=== PATIENT | male | born 1960 | race Caucasian/White ===

== ENCOUNTER 2018-07-18 09:16 | Inpatient (IN) | payer MEDICARE, MEDICAID ==
[2018-07-18] MEDS ORDERED: Glycopyrrolate 0.2 MG/ML 5 ML MDV ONE (09:18)
[2018-07-18] MEDS ORDERED: Neostigmine Methylsulfate 1 MG/ML 5 ML Syringe ONE (09:18)
[2018-07-18] MEDS ORDERED: Rocuronium 50 MG/5 ML Vial ONE ×2 (09:18→13:39)
[2018-07-18] MEDS ORDERED: Dexamethasone 4 MG/ML SDV ONE (09:18)
[2018-07-18] MEDS ORDERED: Propofol 200 MG/20 ML SDV ONE (09:18)
[2018-07-18] MEDS ORDERED: Ondansetron 4 MG/2 ML SDV ONE (09:18)
[2018-07-18] MEDS ORDERED: Succinylcholine 200 MG/10 ML MDV ONE (09:18)
[2018-07-18] MEDS ORDERED: fentaNYL 250 MCG/5 ML SDV ONE (09:21)
[2018-07-18] MEDS ORDERED: Scopolamine 1.5 MG Transdermal Patch TOP SCH (09:45)
[2018-07-18] MEDS ORDERED: Celecoxib 200 MG Cap PO ONE (09:45)
[2018-07-18] MEDS ORDERED: Acetaminophen 500 MG Tab PO ONE (09:45)
[2018-07-18] MEDS ORDERED: Gabapentin 300 MG Cap PO ONE (09:45)
[2018-07-18] MEDS ORDERED: Dextrose 5%-Lactated Ringers 1,000 ML IV SCH (10:00)
[2018-07-18] MEDS ORDERED: carBAMazepine 200 MG TAB.ER PO ONE (10:00)
[2018-07-18] MEDS ORDERED: Bupivacaine 0.5%/EPINEPHrine 1:200,000 50 ML MDV ONE (10:08)
[2018-07-18] MEDS ORDERED: Albuterol/Ipratropium 3.0-0.5 MG/3 ML Neb Soln NEB ONE (10:30)
[2018-07-18] MEDS ORDERED: Meropenem 500 MG SDV ONE (10:35)
[2018-07-18] MEDS ORDERED: Ketamine 500 MG/5 ML MDV IV SCH (11:00)
[2018-07-18] MEDS ORDERED: cefOXitin 2 GM in Sodium Chloride 0.9% 50 ML IV ONE ×4 (11:00)
[2018-07-18] MEDS ORDERED: Ropivacaine 35 ML, Dexamethasone 8 MG, EPINEPHrine 0.4 MG, Sodium Chloride 0.9% 42.6 ML NERVRT SCH ×4 (11:30)
[2018-07-18] MEDS ORDERED: Naloxone 0.4 MG/ML SDV IVPUSH PRN (12:08)
[2018-07-18] MEDS ORDERED: Lidocaine 2% Jelly 10 ML Urojet ONE (12:48)
[2018-07-18] MEDS ORDERED: Lactated Ringers 1,000 ML ONE (13:33)
[2018-07-18] MEDS ORDERED: Sodium Chloride 0.9% 500 ML ONE (13:51)
[2018-07-18] MEDS ORDERED: ePHEDrine 50 MG/ML SDV ONE (13:53)
[2018-07-18] MEDS ORDERED: HYDROmorphone/Normal Saline 15 MG/30 ML PCA IV PRN (15:04)
--- NOTE | 2018-07-18 15:35 | CR ---
CHEST: Portable CLINICAL HISTORY:Central line placement COMPARISON:None FINDINGS: Is a left subclavian central venous catheter. Tip is in the right atrium. There is no pneu mothorax. There is less than optimal inspiration exam exaggerating the lung markings. IMPRESSION: Placement of left subclavian central venous catheter. Tip is in the right atrium No pneumothorax
[2018-07-18] MEDS ORDERED: Ondansetron 4 MG/2 ML SDV IV PRN (16:22)
[2018-07-18] MEDS ORDERED: LORazepam 2 MG/ML SDV IV PRN (16:22)
[2018-07-18] MEDS ORDERED: Naloxone 0.4 MG/ML SDV IV PRN (17:06)
[2018-07-18] MEDS ORDERED: diphenhydrAMINE 50 MG/ML SDV IVPUSH PRN (17:06)
[2018-07-18] MEDS ORDERED: Lactated Ringers 1,000 ML IV SCH (17:30)
[2018-07-18] MEDS: fentaNYL 2,500 MCG in Sodium Chloride 0.9% 200 ML EPIDUR SCH (17:34)
[2018-07-18] MEDS: cefOXitin 2 GM in Sodium Chloride 0.9% 50 ML IV SCH ×2 (17:38→23:32)
[2018-07-18] MEDS: Metoclopramide 10 MG/2 ML SDV IV SCH (17:45)
[2018-07-18] MEDS: Pantoprazole 40 MG Vial IV SCH (17:49)
[2018-07-18] MEDS ORDERED: Lactated Ringers 1,000 ML IV ONE (19:00)
[2018-07-18] MEDS: Tamsulosin 0.4 MG Cap.ER PO SCH (20:30)
[2018-07-18] MEDS: carBAMazepine 200 MG TAB.ER PO SCH (20:30)
[2018-07-18] MEDS: ClonazePAM 1 MG Tab PO SCH (20:30)
[2018-07-18] MEDS: Benztropine 1 MG Tab PO SCH (20:30)
[2018-07-18] MEDS ORDERED: Atenolol 50 MG Tab PO SCH (21:00)
[2018-07-18] MEDS ORDERED: Atenolol 50 MG Tab PO ONE (21:21)
[2018-07-18] MEDS ORDERED: Heparin Sodium 5,000 Units/ML Vial ONE (21:30)
[2018-07-18] MEDS: Dextrose 5%-Lactated Ringers 1,000 ML IV SCH (22:17)
[2018-07-18] MEDS ORDERED: Heparin Sodium 5,000 UNITS in Sodium Chloride 0.9% 500 ML IV SCH (22:30)
[2018-07-19] MEDS: Metoclopramide 10 MG/2 ML SDV IV SCH ×5 (00:07→23:44)
[2018-07-19] MEDS: Dextrose 5%-Lactated Ringers 1,000 ML IV SCH ×4 (04:12→23:58)
[2018-07-19] MEDS: cefOXitin 2 GM in Sodium Chloride 0.9% 50 ML IV SCH ×2 (05:24→11:51)
[2018-07-19] MEDS: Pantoprazole 40 MG Vial IV SCH ×2 (06:00→18:07)
[2018-07-19] MEDS: Benztropine 1 MG Tab PO SCH ×2 (08:00→20:28)
[2018-07-19] MEDS: carBAMazepine 200 MG TAB.ER PO SCH ×2 (08:00→20:28)
[2018-07-19] MEDS: ClonazePAM 0.5 MG Tab PO SCH (08:41)
[2018-07-19] MEDS: Atenolol 50 MG Tab PO SCH ×2 (08:47→20:27)
[2018-07-19] MEDS: Docusate Sodium 100 MG Cap PO SCH ×2 (08:49→20:28)
[2018-07-19] MEDS: Magnesium Sulfate/Water 2 GM in Premix Bag 1 BAG IV SCH ×3 (09:00→21:35)
[2018-07-19] MEDS: fentaNYL 2,500 MCG in Sodium Chloride 0.9% 200 ML EPIDUR SCH (13:38)
[2018-07-19] MEDS: Tamsulosin 0.4 MG Cap.ER PO SCH (20:27)
[2018-07-19] MEDS: ClonazePAM 1 MG Tab PO SCH (20:28)
[2018-07-20] MEDS: Magnesium Sulfate/Water 2 GM in Premix Bag 1 BAG IV SCH ×4 (03:42→21:48)
[2018-07-20] MEDS: Metoclopramide 10 MG/2 ML SDV IV SCH ×4 (05:34→23:56)
[2018-07-20] MEDS: Dextrose 5%-Lactated Ringers 1,000 ML IV SCH ×2 (06:48→17:16)
[2018-07-20] MEDS: carBAMazepine 200 MG TAB.ER PO SCH ×2 (07:55→20:44)
[2018-07-20] MEDS: Benztropine 1 MG Tab PO SCH ×2 (07:59→20:44)
[2018-07-20] MEDS: Docusate Sodium 100 MG Cap PO SCH ×2 (07:59→20:46)
[2018-07-20] MEDS: Atenolol 25 MG Tab PO SCH ×2 (08:00→20:44)
[2018-07-20] MEDS: Bisacodyl 5 MG Tab PO SCH ×2 (08:00→20:45)
[2018-07-20] MEDS: ClonazePAM 0.5 MG Tab PO SCH (08:09)
[2018-07-20] MEDS: Potassium Phosphates 15 MMOLE in Sodium Chloride 0.9% 100 ML IV SCH ×2 (10:30→13:19)
[2018-07-20] MEDS: fentaNYL 2,500 MCG in Sodium Chloride 0.9% 200 ML EPIDUR SCH (14:55)
[2018-07-20] MEDS: Pantoprazole 40 MG Vial IV SCH (17:25)
[2018-07-20] MEDS: ClonazePAM 1 MG Tab PO SCH (20:44)
[2018-07-20] MEDS: Tamsulosin 0.4 MG Cap.ER PO SCH (20:44)
[2018-07-21] MEDS: Dextrose 5%-Lactated Ringers 1,000 ML IV SCH ×3 (02:29→22:35)
[2018-07-21] MEDS: Magnesium Sulfate/Water 2 GM in Premix Bag 1 BAG IV SCH ×4 (03:49→22:05)
[2018-07-21] MEDS: Metoclopramide 10 MG/2 ML SDV IV SCH ×3 (05:31→17:50)
[2018-07-21] MEDS: carBAMazepine 200 MG TAB.ER PO SCH (07:56)
[2018-07-21] MEDS: Benztropine 1 MG Tab PO SCH ×2 (07:57→20:28)
--- NOTE | 2018-07-21 08:46 | PN ---
DATE OF SERVICE: 07/20/2018 The patient has been afebrile with stable vital signs. Blood pressure has been running a little bit low, so will back down a little bit in terms of Tylenol dosing. Otherwise, the patient had some nasogastric suctioning yesterday, which improved pulmonary toilet, and he has had a net diuresis of a significant amount over the last 24 hours. Labs show hemoglobin of 12.4, creatinine is 1.5, which is up, as one would expect. Albumin is 1.9, and if that remains relatively low, we may start him on some TPN tomorrow. Otherwise, we will maximize activity and nasotracheal suction as needed. We will continue the n.p.o., except ice chips and some sips of clear liquids, until his bowels move. We will start some scheduled dulcolax oral tablets as well at this point. The AUDELIA drain in the liver bed has some bile staining yet, but as long as that is draining, it should not be a significant problem. Wang Wagner MD /[id number]
--- NOTE | 2018-07-21 08:50 | PN ---
DATE OF SERVICE: 07/19/2018 The patient has been clinically stable overnight. He did require quite a bit of IV fluid in the early postoperative period. The family agreed to giving a unit of blood, which seemed to likely stabilize his intravascular volume more satisfactorily than the crystalloids, and he was maintaining CVP in the 7 to 9 range and adequate urine output since that time. Pain control appeared to be fairly good. He has not been cooperative to much extent in terms of coughing and deep breathing. Given this, we will need to work on having him walk and being out of bed quite a bit. Continue the epidural catheter. Magnesium levels were low, that will be supplemented. Otherwise, his creatinine is 1.2 and 0.9 yesterday, which would be satisfactory and hemoglobin this morning is 14.1 with it being in the upper 15s preoperatively. His blood pressure is not overly high, so we will decrease the atenolol dose somewhat from 150 mg a day to 50 mg q.12 hours. Wang Wagner MD /[id number]
[2018-07-21] MEDS: Magnesium Hydroxide 400 MG/5 ML Susp 30 ML Cup PO SCH ×2 (09:08→20:30)
[2018-07-21] MEDS: Docusate Sodium 100 MG Cap PO SCH ×2 (09:08→20:29)
[2018-07-21] MEDS: Bisacodyl 5 MG Tab PO SCH ×2 (09:08→20:29)
[2018-07-21] MEDS: ClonazePAM 0.5 MG Tab PO SCH (09:10)
[2018-07-21] MEDS: Atenolol 25 MG Tab PO SCH ×2 (09:11→20:30)
[2018-07-21] MEDS: fentaNYL 2,500 MCG in Sodium Chloride 0.9% 200 ML EPIDUR SCH (15:55)
[2018-07-21] MEDS: Pantoprazole 40 MG Vial IV SCH (17:50)
[2018-07-21] MEDS: carBAMazepine 100 MG Cap.ER PO SCH (20:28)
[2018-07-21] MEDS: Tamsulosin 0.4 MG Cap.ER PO SCH (20:29)
[2018-07-21] MEDS: ClonazePAM 1 MG Tab PO SCH (20:30)
[2018-07-22] MEDS: Metoclopramide 10 MG/2 ML SDV IV SCH ×4 (00:01→16:59)
[2018-07-22] MEDS: Magnesium Sulfate/Water 2 GM in Premix Bag 1 BAG IV SCH (04:01)
[2018-07-22] MEDS ORDERED: HYDROmorphone 2 MG Tab PO PRN (07:22)
[2018-07-22] MEDS: carBAMazepine 100 MG Cap.ER PO SCH ×2 (07:55→20:11)
[2018-07-22] MEDS: Benztropine 1 MG Tab PO SCH ×2 (07:55→20:11)
[2018-07-22] MEDS: Atenolol 25 MG Tab PO SCH ×2 (08:04→20:12)
[2018-07-22] MEDS: Docusate Sodium 100 MG Cap PO SCH ×2 (08:07→20:11)
[2018-07-22] MEDS: Bisacodyl 5 MG Tab PO SCH ×2 (08:09→20:12)
[2018-07-22] MEDS: Magnesium Hydroxide 400 MG/5 ML Susp 30 ML Cup PO SCH ×2 (08:11→20:12)
[2018-07-22] MEDS: ClonazePAM 0.5 MG Tab PO SCH (08:13)
--- NOTE | 2018-07-22 08:14 | PN ---
DATE OF SERVICE: 07/21/2018 The patient has been afebrile with stable vital signs. He still is not able to cough, but nasotracheal suctioning seems to be clearing things fairly well in terms of his pulmonary secretions. O2 saturations on 1 L of nasal cannula are in the mid upper 90s. Otherwise, urine output has been satisfactory. Creatinine is stable at 1.4, and hemoglobin likewise is unremarkable at 11.7. AUDELIA drains are slowing down, the one in the liver bed still has some bile staining, but as long as that is draining, it should not be problematic. Will remove the Aquacel dressing. The CVPs have been stable, and we will be able to stop measuring these. Will check some labs in the morning. Continue to work on getting the bowels going. We will leave the epidural catheter in for 1 more day, then getting that out and going to oral pain medication tomorrow. Wang Wagner MD /[id number]
[2018-07-22] MEDS ORDERED: Albumin 25% 50 ML IV SCH ×3 (09:00)
[2018-07-22] MEDS: Ibuprofen 400 MG Tab PO SCH ×3 (09:52→21:56)
[2018-07-22] MEDS: Acetaminophen 500 MG Tab PO SCH ×3 (09:54→21:55)
[2018-07-22] MEDS: Albumin 25% 50 ML IV SCH (11:40)
[2018-07-22] MEDS: Pantoprazole 40 MG Vial IV SCH (17:01)
[2018-07-22] MEDS: Dextrose 5%-Lactated Ringers 1,000 ML IV SCH (18:12)
[2018-07-22] MEDS: Tamsulosin 0.4 MG Cap.ER PO SCH (20:12)
[2018-07-22] MEDS: ClonazePAM 1 MG Tab PO SCH (20:14)
[2018-07-23] MEDS: Metoclopramide 10 MG/2 ML SDV IV SCH ×4 (00:43→18:06)
[2018-07-23] MEDS: Acetaminophen 500 MG Tab PO SCH (03:25)
[2018-07-23] MEDS: Ibuprofen 400 MG Tab PO SCH (03:26)
[2018-07-23] MEDS: Dextrose 5%-Lactated Ringers 1,000 ML IV SCH ×2 (04:17→15:04)
[2018-07-23] MEDS ORDERED: Naloxone 0.4 MG/ML SDV IV PRN (09:05)
[2018-07-23] MEDS ORDERED: HYDROmorphone/Normal Saline 15 MG/30 ML PCA IV PRN (09:05)
--- NOTE | 2018-07-23 09:27 | CR ---
Chest 1V Frontal HISTORY: r/o aspiration of green gut fluid COMPARISON: 07/18/2018 FINDINGS: Portable chest, 0754 hours. There is increased density left lung base silhouetting the left hemidiaphragm. This could be a small amount of pleural fluid. Underlying infiltrate or atelectasis cannot entirely excluded. Remainder of the chest is clear. Heart size is within normal limits. Pulmonary vasculature is not engorged. There is no pneumothorax. No right pleural fluid is seen. NG tube is in the stomach. Tip of the left subclavian central line is stable near the junction of the the SVC and right atrium. IMPRESSION: Increased density left lung base may represent a small amount of pleural fluid. I cannot exclude underlying inflammatory infiltrate or atelectasis. Recommend clinical correlation and follow- up.
[2018-07-23] MEDS: Piperacillin/Tazobactam/Dext 3.375 GM in Premix Bag 1 BAG IV SCH ×3 (09:28→21:47)
[2018-07-23] MEDS: Albumin 25% 50 ML IV SCH ×2 (09:59→13:11)
[2018-07-23] MEDS: Clindamycin Phosphate 900 MG in Sodium Chloride 0.9% 100 ML IV SCH ×2 (11:34→18:10)
[2018-07-23] MEDS: Benztropine 1 MG Tab PO SCH ×2 (11:42→20:01)
[2018-07-23] MEDS: carBAMazepine 100 MG Cap.ER PO SCH ×2 (11:44→20:01)
[2018-07-23] MEDS: Atenolol 25 MG Tab PO SCH ×2 (11:45→20:02)
[2018-07-23] MEDS: ClonazePAM 0.5 MG Tab PO SCH (11:50)
[2018-07-23] MEDS: Docusate Sodium 100 MG Cap PO SCH (13:05)
--- NOTE | 2018-07-23 14:25 | PN ---
DATE OF SERVICE: 07/22/2018 The patient has been afebrile with stable vital signs. He continues to make good urine output and passing some flatus. Has had no bowel movement. The plan will be to switch over to oral pain medication today. Discontinue the epidural catheter. His albumin is somewhat low, and we will supplement that over the next three days and, otherwise, begin a full liquid diet. The AUDELIA drains are now entirely clear, and these will be removed. We will have PT and Speech Pathology evaluate the patient as well at this point. Wang Wagner MD /[id number]
--- NOTE | 2018-07-23 15:10 | PN ---
DATE OF SERVICE: 07/23/2018 The patient has been afebrile with stable vital signs. No major problems were noted. He has moved his bowels and will go up to a regular diet today. He was not able to void after removal of Hamilton catheter yesterday, had around 400 mL in the bladder. Creatinine is actually down a little bit from 1.[address] We will place a Hamilton catheter later today if he is not able to void. Otherwise, he will be transferred to second floor. He will continue to maximize activity and work with pulmonary toilet as much as possible. Wang Wagner MD /[id number]
[2018-07-23] MEDS: Pantoprazole 40 MG Vial IV SCH (18:02)
[2018-07-23] MEDS: ClonazePAM 1 MG Tab PO SCH (20:03)
[2018-07-23] MEDS ORDERED: Albuterol/Ipratropium 3.0-0.5 MG/3 ML Neb Soln ONE (22:27)
[2018-07-23] MEDS: Albuterol/Ipratropium 3.0-0.5 MG/3 ML Neb Soln NEB SCH (22:30)
[2018-07-24] MEDS: Metoclopramide 10 MG/2 ML SDV IV SCH ×5 (00:44→23:44)
[2018-07-24] MEDS: Albuterol/Ipratropium 3.0-0.5 MG/3 ML Neb Soln NEB SCH ×6 (02:29→21:56)
[2018-07-24] MEDS: Clindamycin Phosphate 900 MG in Sodium Chloride 0.9% 100 ML IV SCH ×2 (02:29→10:51)
[2018-07-24] MEDS: Dextrose 5%-Lactated Ringers 1,000 ML IV SCH (02:33)
[2018-07-24] MEDS: Piperacillin/Tazobactam/Dext 3.375 GM in Premix Bag 1 BAG IV SCH ×4 (04:02→21:54)
[2018-07-24] MEDS: carBAMazepine 100 MG Cap.ER PO SCH ×2 (07:42→19:47)
[2018-07-24] MEDS: Benztropine 1 MG Tab PO SCH ×2 (07:42→19:47)
[2018-07-24] MEDS ORDERED: Furosemide 20 MG/2 ML VIAL IV ONE (08:00)
[2018-07-24] MEDS ORDERED: Erythromycin Ethylsuccinate Susp 400 MG/5 ML 100 ML Bottle PO SCH (08:00)
[2018-07-24] MEDS: ClonazePAM 0.5 MG Tab PO SCH (08:33)
[2018-07-24] MEDS: Erythromycin Ethylsuccinate Susp 400 MG/5 ML 100 ML Bottle PO SCH ×3 (08:33→16:25)
[2018-07-24] MEDS: Atenolol 25 MG Tab PO SCH ×3 (08:33→21:54)
--- NOTE | 2018-07-24 09:02 | CR ---
Chest 1V Frontal HISTORY: fever, cough COMPARISON: 07/23/2018, 07/18/2018 FINDINGS: There are increased infiltrates versus atelectasis right clips pleural fluid left lung base on today's exam. Mild linear interstitial changes are now seen right lung base which could represent atelectasis or early infiltrate. Upper chest is clear. No vascular redistribution is seen. No right pleural fluid is noted. Heart size is within normal limits. Left subclavian central line is in place. The tip is stable in the junction of the SVC and right atrium. Esophagogastric tube has removed in t he interval. IMPRESSION: Mild increase in infiltrates versus atelectasis or pleural fluid left lung base. Possible early infiltrates versus atelectasis are now seen right lung base. Esophagogastric tube has been rem carissa in the interval. A left subclavian central line is stable. No other acute chest abnormality or s ignificant interval change is identified.
[2018-07-24] MEDS: Albumin 25% 50 ML IV SCH ×2 (09:46→11:06)
[2018-07-24] MEDS: 1: AA 5%/Calcium/D15W/Lytes 1,000 ML with MVI, Adult with Vitamin K 10 ML, Chromium/Copp IV SCH ×9 (10:52→21:54)
[2018-07-24] MEDS ORDERED: Dextrose 5%-Lactated Ringers 1,000 ML IV SCH (11:30)
[2018-07-24] MEDS: Linezolid 600 MG in Premix Bag 1 BAG IV SCH (12:56)
[2018-07-24] MEDS: Pantoprazole 40 MG Vial IV SCH (18:07)
[2018-07-24] MEDS: ClonazePAM 1 MG Tab PO SCH ×2 (19:47→21:54)
[2018-07-25] MEDS: Linezolid 600 MG in Premix Bag 1 BAG IV SCH ×2 (00:21→13:04)
[2018-07-25] MEDS: Albuterol/Ipratropium 3.0-0.5 MG/3 ML Neb Soln NEB SCH ×6 (02:20→22:13)
[2018-07-25] MEDS: Piperacillin/Tazobactam/Dext 3.375 GM in Premix Bag 1 BAG IV SCH ×4 (03:42→22:12)
[2018-07-25] MEDS: 1: AA 5%/Calcium/D15W/Lytes 1,000 ML with MVI, Adult with Vitamin K 10 ML, Chromium/Copp IV SCH ×9 (05:10→19:22)
[2018-07-25] MEDS: Metoclopramide 10 MG/2 ML SDV IV SCH ×3 (05:41→17:44)
[2018-07-25] MEDS: Benztropine 1 MG Tab PO SCH ×2 (08:02→19:22)
[2018-07-25] MEDS: Erythromycin Ethylsuccinate Susp 400 MG/5 ML 100 ML Bottle PO SCH ×3 (08:02→17:39)
[2018-07-25] MEDS: carBAMazepine 100 MG Cap.ER PO SCH ×2 (08:03→19:23)
[2018-07-25] MEDS ORDERED: Furosemide 20 MG/2 ML VIAL IVPUSH ONE (09:00)
[2018-07-25] MEDS ORDERED: Tamsulosin 0.4 MG Cap.ER PO ONE (09:00)
[2018-07-25] MEDS ORDERED: Magnesium Hydroxide 400 MG/5 ML Susp 30 ML Cup PO ONE (09:00)
[2018-07-25] MEDS: Magnesium Sulfate/Water 2 GM in Premix Bag 1 BAG IV SCH ×3 (10:09→19:22)
[2018-07-25] MEDS: ClonazePAM 0.5 MG Tab PO SCH (10:09)
[2018-07-25] MEDS: Atenolol 25 MG Tab PO SCH ×2 (10:09→20:43)
[2018-07-25] MEDS: Bisacodyl 5 MG Tab PO SCH ×2 (10:10→20:43)
[2018-07-25] MEDS: Fluconazole 100 MG Tab PO SCH (10:10)
[2018-07-25] MEDS: Docusate Sodium 100 MG Cap PO SCH ×2 (10:10→20:43)
--- NOTE | 2018-07-25 12:11 | PN ---
DATE OF SERVICE: 07/24/2018 The patient had an episode yesterday when he apparently vomited and aspirated. His respiratory status had worsened transiently, and he is still requiring little bit more oxygen than previously. He was empirically put on clindamycin and Zosyn. Gram stain, C and S and sputum will be obtained today by nasotracheal suctioning, and we will fine-tune the antibiotic choices based on that and subsequent cultures. Otherwise, Hamilton catheter is placed back in. His urine output remains fairly good. Blood pressures are somewhat high with a relatively high pulse pressure. I think we will give him empirically some Lasix this morning as well. Otherwise, add some erythromycin orally to help augment GI tract motility. Labs show white count of 9200 and hemoglobin is stable at 10.5. Electrolytes are unremarkable. Creatinine is down a little bit at 1.2. I did do a check on BNP this morning and that was 5689. That is higher than what he normally runs in terms of a baseline, so we will give him some Lasix. We will check another one tomorrow along with other labs. We will start some TPN today as well given the protracted nature of his ileus. Wang Wagnre MD /[id number]
--- NOTE | 2018-07-25 12:17 | OR ---
DATE OF PROCEDURE: 07/18/2018 PREOPERATIVE DIAGNOSES: 1. Polypoid mass involving gallbladder. 2. Complex left renal cyst. POSTOPERATIVE DIAGNOSES: 1. Urethral stricture. 2. Limited peripheral venous access. 3. Polypoid gallbladder mass (benign by frozen section). 4. Left renal mass (indeterminate by frozen section). OPERATIVE PROCEDURES: 1. Position placement of Hamilton catheter due to altered urethral anatomy (83342). 2. Insertion of left subclavian vein triple-lumen catheter (91059). 3. Exploratory laparotomy with;. a. Wedge resection of mass involving the right lobe of liver (11397). b. Radical cholecystectomy (13737). c. Resection of hepatic segments IVB and V (51300). d. Left radical nephrectomy with regional lymphadenectomy (52716). ANESTHESIA: General plus epidural. ELEVATOR SERVICE TECHNICIAN: Xenia Avila PA-C. INDICATION FOR PROCEDURE: This is a 57-year-old who is being followed for polycystic kidney disease, was found to have a complex mass involving the left kidney. This was located in the upper pole, but fairly close to the hilum and has somewhat indeterminate margins. It has a high uptake of contrast making it quite different and more suspicious for malignancy than the other cystic lesions in the kidney. The patient was also noted to have history of a partial right nephrectomy, however, review of the CT scan shows quite good protracted cortical appearance and the amount of kidney missing is fairly negligible by CT scan, in fact, not noticed to have been resected on the radiologic review. Given this, the plan will be to proceed with a left radical nephrectomy rather than a partial nephrectomy. The patient was also noted to have a gallbladder mass measuring 1.8 cm. This was the size that would more or less be treated as a malignancy until proven otherwise. The plan is to proceed with a cholecystectomy along with empiric liver resection, so as to not break into what might be a malignant mass in the gallbladder area. Potential risks of the procedure were reviewed with the patient's guardian, and they wished to proceed. DETAILS OF PROCEDURE: The patient was taken to the operating room and placed in a supine position. After an epidural catheter had been placed, general endotracheal anesthesia was induced. Initially, a Hamilton catheter was attempted to be placed by nursing. The patient appeared to have a urethral stricture. After placement of some Uro-Jet, Dr. Wagner was able to pass a 10-Swazi urethral catheter. This was confirmed to have the balloon within the bladder at the time of subsequent laparotomy. The patient was also noted to have extremely limited peripheral venous access. Given this, a left subclavian vein triple-lumen catheter was also then placed using the standard technique. Good in and outflow was noted. Ports were flushed with heparinized saline. The catheter was sutured to skin with some 3-0 silk stitch. Subsequent chest x-ray showed good catheter position and no evident complications. An upper midline incision was then made from the xiphoid to the umbilicus and carried down through the full-thickness abdominal wall. Upon entering the peritoneal cavity, general exploration was undertaken. The only hint of any area suspicious for metastatic disease was the white nodule, roughly the size of a peanut, in the right lobe. This was somewhat lateral to the area where the liver resection would be typically conducted around the gallbladder, and this area was then removed by means of a wedge biopsy of the liver. 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 Given this, then the decision was made to proceed with the radical cholecystectomy. The gallbladder was freed up of some adhesions, and the cystic duct-gallbladder neck junction along with the common bile duct were dissected free. Three clips were placed proximally and one distally, and the cystic duct divided. The cystic artery was then similarly isolated, clipped and divided, which allowed freeing up of the gallbladder neck from the underlying liver. The mass was palpable and along the midportion of the gallbladder, using the primary staple technique, hepatic segments IVB and V were then resected, and these were delivered from the field. Some oozing was then cauterized and then subsequently fibrin sealant applied to the open edges of the liver with good hemostasis confirmed and no bile leaks identified. Attention was then taken to the left kidney. The peritoneum lateral to the kidney from the superior and slightly inferior was then divided. This then allowed mobilization of the kidney along with the Gerota's fascia, more or less flush with the underlying posterior musculature. The attachments to the spleen were then divided with the JACKELINE paulette and then this allowed full mobilization of the kidney upward. Initially, the ureter a few centimeters inferior to the kidney was divided with the JACKELIEN stapler. This then allowed a plane of dissection directly along the left side of the aorta, thus removing the regional lymph nodes en bloc with the kidney. This was accomplished with sequential stapling along the edge of the aorta, which included a portion of the renal artery and vein and then a portion of the adrenal gland was taken also with paulette. The radical nephrectomy specimen was then delivered from the field. Good hemostasis was confirmed and this this area was also then reinforced with some fibrin sealant. No further problems were noted at this point. The renal bed as well as the liver resection site were then individually drained with Nicholas-Mooney drains. Midline fascia was then approximated with #2 Vicryl stitch. Skin and subcutaneous tissue were felt to be at high risk for wound infection and therefore were left open for a planned delayed primary closure. The patient was taken to the recovery room in a satisfactory condition. There were no evident complications. Physician assistant professor of history, Xenia Avila, played an essential role in assisting in this case, helping to position the patient, retract structures as needed, suturing and cutting sutures when indicated. Her presence improved patient safety and decreased the operative time. Wang Wagner MD /[id number]
--- NOTE | 2018-07-25 15:32 | PN ---
DATE OF SERVICE: 07/25/2018 The patient has been afebrile with stable vital signs. He did move his bowels and has not had any more emesis. The plan at this point will be to restart a full liquid diet. We will give him some ongoing bowel stimulation. The Gram stain yesterday had predominantly gram- positive cocci, and he was started on Zyvox pending C and S results. We will switch him off that to avoid some reported possible drug interaction issues per Pharmacy, once the sensitivity becomes available. Otherwise, we will back down the TPN. He did diurese quite a bit yesterday and BNP is down from mid 5000s to the mid 2000s. The magnesium is also somewhat lower. We will back down the TPN to 60 mL an hour and restart the full liquid diet. The cultures of the sputum are also revealing some fungus, and we will start him on some oral Diflucan as well. Wang Wagner MD /[id number]
[2018-07-25] MEDS: Pantoprazole 40 MG Vial IV SCH (17:39)
[2018-07-25] MEDS: ClonazePAM 1 MG Tab PO SCH (20:43)
[2018-07-25] MEDS: Tamsulosin 0.4 MG Cap.ER PO SCH (20:43)
[2018-07-26] MEDS: Linezolid 600 MG in Premix Bag 1 BAG IV SCH ×2 (00:06→13:22)
[2018-07-26] MEDS: Metoclopramide 10 MG/2 ML SDV IV SCH ×4 (00:07→17:46)
[2018-07-26] MEDS: Magnesium Sulfate/Water 2 GM in Premix Bag 1 BAG IV SCH ×4 (02:10→19:36)
[2018-07-26] MEDS: Albuterol/Ipratropium 3.0-0.5 MG/3 ML Neb Soln NEB SCH ×6 (02:10→23:35)
[2018-07-26] MEDS: Piperacillin/Tazobactam/Dext 3.375 GM in Premix Bag 1 BAG IV SCH ×4 (03:58→22:01)
[2018-07-26] MEDS ORDERED: HYDROmorphone 2 MG Tab PO PRN (07:18)
[2018-07-26] MEDS: carBAMazepine 100 MG Cap.ER PO SCH ×2 (07:48→19:36)
[2018-07-26] MEDS: Benztropine 1 MG Tab PO SCH ×2 (07:48→19:35)
[2018-07-26] MEDS: Erythromycin Ethylsuccinate Susp 400 MG/5 ML 100 ML Bottle PO SCH ×3 (07:49→16:30)
[2018-07-26] MEDS: Docusate Sodium 100 MG Cap PO SCH ×2 (07:59→21:51)
[2018-07-26] MEDS: Fluconazole 100 MG Tab PO SCH (07:59)
[2018-07-26] MEDS: Atenolol 25 MG Tab PO SCH ×2 (08:00→22:02)
[2018-07-26] MEDS: ClonazePAM 0.5 MG Tab PO SCH (08:03)
[2018-07-26] MEDS: 1: AA 5%/Calcium/D15W/Lytes 1,000 ML with MVI, Adult with Vitamin K 10 ML, Chromium/Copp IV SCH ×3 (13:17)
[2018-07-26] MEDS: Pantoprazole 40 MG Vial IV SCH (17:48)
[2018-07-26] MEDS: Tamsulosin 0.4 MG Cap.ER PO SCH (21:52)
[2018-07-26] MEDS: ClonazePAM 1 MG Tab PO SCH (22:01)
[2018-07-27] MEDS: Metoclopramide 10 MG/2 ML SDV IV SCH ×2 (00:31→06:05)
[2018-07-27] MEDS: Linezolid 600 MG in Premix Bag 1 BAG IV SCH ×2 (00:31→13:08)
[2018-07-27] MEDS: Magnesium Sulfate/Water 2 GM in Premix Bag 1 BAG IV SCH (01:37)
[2018-07-27] MEDS: Albuterol/Ipratropium 3.0-0.5 MG/3 ML Neb Soln NEB SCH ×6 (02:18→22:18)
[2018-07-27] MEDS: Piperacillin/Tazobactam/Dext 3.375 GM in Premix Bag 1 BAG IV SCH ×4 (04:39→22:18)
[2018-07-27] MEDS: 1: AA 5%/Calcium/D15W/Lytes 1,000 ML with MVI, Adult with Vitamin K 10 ML, Chromium/Copp IV SCH ×3 (06:03)
[2018-07-27] MEDS: Fluconazole 100 MG Tab PO SCH (08:07)
[2018-07-27] MEDS: carBAMazepine 100 MG Cap.ER PO SCH ×2 (08:07→20:05)
[2018-07-27] MEDS: Atenolol 25 MG Tab PO SCH ×2 (08:07→20:06)
[2018-07-27] MEDS: Benztropine 1 MG Tab PO SCH ×2 (08:08→20:05)
[2018-07-27] MEDS: Docusate Sodium 100 MG Cap PO SCH ×2 (08:08→20:05)
[2018-07-27] MEDS: ClonazePAM 0.5 MG Tab PO SCH (08:15)
[2018-07-27] MEDS ORDERED: Pantoprazole 40 MG Tab.CR PO SCH (16:00)
[2018-07-27] MEDS: Tamsulosin 0.4 MG Cap.ER PO SCH (20:05)
[2018-07-27] MEDS: ClonazePAM 1 MG Tab PO SCH (20:08)
[2018-07-28] MEDS: Linezolid 600 MG in Premix Bag 1 BAG IV SCH (00:38)
[2018-07-28] MEDS: Albuterol/Ipratropium 3.0-0.5 MG/3 ML Neb Soln NEB SCH ×3 (02:23→10:34)
[2018-07-28] MEDS: Piperacillin/Tazobactam/Dext 3.375 GM in Premix Bag 1 BAG IV SCH ×2 (03:12→10:04)
[2018-07-28] MEDS: carBAMazepine 100 MG Cap.ER PO SCH (07:25)
[2018-07-28] MEDS: Benztropine 1 MG Tab PO SCH (07:25)
--- NOTE | 2018-07-28 07:51 | PN ---
DATE OF SERVICE: 07/26/2018 The patient has now been afebrile with stable vital signs. Oxygenation has been fairly good. He was diuresed and BNP is down quite significantly. Oral intake is still a little bit marginal, but again he is moving his bowels and will go up to a regular diet and have 5 small meals with encouragement to increase his oral intake. We will leave the TPN going at 40 mL an hour for now and he will be transferred to second floor. Wang Wagner MD /[id number]
[2018-07-28] MEDS: Docusate Sodium 100 MG Cap PO SCH (08:40)
[2018-07-28] MEDS: Fluconazole 100 MG Tab PO SCH (08:40)
[2018-07-28] MEDS: Atenolol 25 MG Tab PO SCH (08:41)
[2018-07-28] MEDS: ClonazePAM 0.5 MG Tab PO SCH (08:41)
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
--- NOTE | 2018-07-28 15:15 | PN ---
DATE OF SERVICE: 07/27/2018 The patient has been afebrile with stable vital signs. Oral intake is fairly good, moving his bowels fairly frequently. We will discontinue the erythromycin and Reglan at this point. The TPN will be turned down to 40 mL an hour. We will discontinue that once the current bag is completed. Hamilton catheter will come out. He will likely be ready for transfer back to his halfway in the [place] area on Saturday. Wang Wagner MD /[id number]
== END 2018-07-28 11:31 | disposition home health service (06) | DRG 415 ==
LOC: JP.SDS 09:16 → JP.MS 09:16 → EDSTATUS 10:30 → JP.ICU 15:41 → JP.MS 07-26 10:07
PROVIDERS: ADMIT Surgery; ATTEND Surgery
PROC: 0T9B70Z Drainage of Bladder with Drainage Device, Via Natural or Artificial Opening (ICD-10-PCS; principal; 2018-07-18)
PROC: 0FT40ZZ Resection of Gallbladder, Open Approach (ICD-10-PCS; 2018-07-18)
PROC: 0FB10ZX Excision of Right Lobe Liver, Open Approach, Diagnostic (ICD-10-PCS; 2018-07-18)
PROC: 02H633Z Insertion of Infusion Device into Right Atrium, Percutaneous Approach (ICD-10-PCS; 2018-07-18)
PROC: 0FB20ZX Excision of Left Lobe Liver, Open Approach, Diagnostic (ICD-10-PCS; 2018-07-18)
PROC: 0FB10ZX Excision of Right Lobe Liver, Open Approach, Diagnostic (ICD-10-PCS; 2018-07-18)
PROC: 0TT10ZZ Resection of Left Kidney, Open Approach (ICD-10-PCS; 2018-07-18)
PROC: 07BC0ZX Excision of Pelvis Lymphatic, Open Approach, Diagnostic (ICD-10-PCS; 2018-07-18)
PROC: 30233N1 Transfusion of Nonautologous Red Blood Cells into Peripheral Vein, Percutaneous Approach (ICD-10-PCS; 2018-07-18)
DX: K82.8 Other specified diseases of gallbladder (principal); R44.3 Hallucinations, unspecified; B48.8 Other specified mycoses; N28.89 Other specified disorders of kidney and ureter; N35.9 Urethral stricture, unspecified; N36.1 Urethral diverticulum; C43.9 Malignant melanoma of skin, unspecified; Z85.528 Personal history of other malignant neoplasm of kidney; N40.1 Benign prostatic hyperplasia with lower urinary tract symptoms; R33.8 Other retention of urine; I10 Essential (primary) hypertension; G93.89 Other specified disorders of brain; F09 Unspecified mental disorder due to known physiological condition; M85.80 Other specified disorders of bone density and structure, unspecified site; E78.5 Hyperlipidemia, unspecified; F06.8 Other specified mental disorders due to known physiological condition; G40.909 Epilepsy, unspecified, not intractable, without status epilepticus; Z72.0 Tobacco use; Z87.820 Personal history of traumatic brain injury; R59.1 Generalized enlarged lymph nodes; E83.42 Hypomagnesemia; R11.10 Vomiting, unspecified; T17.918A Gastric contents in respiratory tract, part unspecified causing other injury, initial encounter; X58.XXXA Exposure to other specified factors, initial encounter; Y92.230 Patient room in hospital as the place of occurrence of the external cause; B96.89 Other specified bacterial agents as the cause of diseases classified elsewhere
CPT/HCPCS: 36415; 36430; 51702; 71045; 71045-26; 80053; 82378; 83735; 83880; 84100; 85025; 85027; 86850; 86900; 86901; 86920; 86922; 87070; 87077; 87205; 88307; 88331; 92610-GN; 94640; 97110-GP; 97162-GP; 97530-GP; A9270-GY; C9113; J0330; J0694; J1100; J1170; J1642; J1644; J1940; J2020; J2185; J2405; J2543; J2704; J2710; J2765; J3010; J3475; J3490; J7030; J7040; J7042; J7050; J7120; J7620-GY; P9016; P9047